=== PATIENT | female | born 1940 | race Caucasian/White ===

== ENCOUNTER 2017-11-13 13:40 | Inpatient (IN) | payer MEDICARE, OTHER ==
[2017-11-13] MEDS ORDERED: NORMAL SALINE 1,000 ML IV ONE (14:27)
[2017-11-13 14:35] LABS: Hematocrit 31.8 % (37.0-47.0); Hemoglobin 10.4 gm/dL (12.5-16.0); Mean Cell Volume 94.9 fl (78-100); Mean Corpuscular Hgb Conc 32.7 g/dl (32-36); Mean Platelet Volume 10.9 fl (8-12.5); Neutrophil # 15.3 K/mm3 (1.3-6.0); Neutrophil % 90.8 % (42-75.0); Platelet Count 189 K/mm3 (150-450); Red Blood Count 3.35 M/mm3 (4.2-5.4); Red Cell Distribution Width 14.3 % (11.5-14.0); White Blood Count 16.9 K/mm3 (4.0-10.5)
[2017-11-13 14:42] LABS: Urine Bilirubin Negative (NEGATIVE); Urine Blood 50 /ul (NEGATIVE); Urine Ketone Negative (NEGATIVE); Urine Nitrite Negative (NEGATIVE); Urine Protein >=300 mg/dL (NEGATIVE); Urine Specific Gravity 1.025 SP.GR. (1.005-1.010); Urine Urobilinogen Normal (NORMAL)
[2017-11-13 14:49] LABS: Albumin * 3.5 gm/dl (3.4-5.0); Anion Gap 11.5 mmol/L (6.8-13.8); BUN/Creatinine Ratio 26.6 (9.0-21.6); Bilirubin, Total 0.3 mg/dL (0.0-1.1); CRP 0.4 mg/dL (0.0-0.9); Ca. Corrected For Albumin 9.5 mg/dL (8.4-10.2); Calcium * 9.4 mg/dL (7.9-10.9); Carbon Dioxide 24.5 mmol/L (24-32.6); Total Protein 6.6 gm/dL (6.2-8.2)
[2017-11-13] MEDS ORDERED: ACETAMINOPHEN 500 MG TABLET PO ONE (15:06)
[2017-11-13 15:15] LABS: Urine Appearance Clear (CLEAR); Urine Bacteria TRACE; Urine Color Yellow; Urine WBC 0-5 /hpf (0-5)
[2017-11-13] MEDS ORDERED: AZITHROMYCIN 500 MG in DEXTROSE 5 % IN WATER 250 ML IV ONE ×2 (17:00)
--- NOTE | 2017-11-13 17:05 | ERNOTE ---
Medical Problem HPI - Narrative Date of Service: 11/13/17 - General Chief Complaint: General Assessment Time Seen by Provider: 11/13/17 14:13 Source: patient, family Exam Limitations: no limitations - Immun/Allergies/Home Medications Immunizations: IMMUNIZATION HX Immunizations Up to Date Yes History of Influenza Vaccine No Hx Pneumococcal Vaccination Yes Allergies/Adverse Reactions: Allergies No Known Allergies Allergy (Unverified 11/13/17 14:04) Home Medications: HOME MEDICATIONS Aspirin [Adult Aspirin] 81 mg PO DAILY 11/13/17 [Last Taken Unknown] [place] 1 gm MC DAILY 11/13/17 [Last Taken Unknown] Calcium Carbonate [Calcium] 500 mg PO DAILY 11/13/17 [Last Taken Unknown] Calcium Cit/Mgox/Vit D3/B6/Min [Calcium Citrate Plus Tablet] 1 each PO DAILY [Last Taken Unknown] Cholecalciferol (Vitamin D3) [Vitamin D3] 800 unit PO DAILY 11/13/17 [Last Taken Unknown] Copper Gluconate [Copper] 1 mg PO DAILY 11/13/17 [Last Taken Unknown] Lisinopril [Zestril] 40 mg PO DAILY 11/13/17 [Last Taken Unknown] Magnesium 80 mg PO DAILY 11/13/17 [Last Taken Unknown] Manganese Chloride [Manganese] 0.1 mg IV DAILY 11/13/17 [Last Taken Unknown] Metoprolol Succinate 25 mg PO DAILY 11/13/17 [Last Taken Unknown] Multivitamin [One Daily Essential] 1 each PO DAILY 11/13/17 [Last Taken Unknown] Pyridoxine HCl (Vitamin B6) [Vitamin B-6] 10 mg PO DAILY 11/13/17 [Last Taken Unknown] Triamterene/Hydrochlorothiazid [Triamterene-Hctz 50-25 mg Cap] 1 each PO DAILY 11/13/17 [Last Taken Unknown] Zinc 10 mg PO DAILY 11/13/17 [Last Taken Unknown] amLODIPine BESYLATE [Norvasc] 5 mg PO DAILY 11/13/17 [Last Taken Unknown] - History of Present History Narrative: Patient presents to the ED for fever and shaking chills. This started today. She has had some cough but not bad. No abdominal pains. She has not been around anyone else sick that she knows of. She is from [facility] but has been here visiting family for 3 weeks. Shaking chills and generalized weakness. No urinary symptoms. No vomiting.Nothing makes this better or worse. Timing: constant Severity: moderate Modifying Factors - (Improves): Present: other - nothing Modifying Factors - (Worsens): Present: other - nothing Review of Systems - Review of Systems Constitutional: Present: fever, chills EYE: Present: no symptoms reported ENT: Absent: sore throat Respiratory: Present: cough Cardiology: Absent: chest pain Gastrointestinal/Abdominal: Absent: abdominal pain Genitourinary: Absent: frequency All Other Systems: All systems neg except as marked Medical History (Last Reviewed 11/13/17 @ 17:02 by Misael Tang MD) Chronic kidney disease Hypertension anemia assoc w/ kidney disease Social History: Preferred Language Bahamian Do you have any anglican or Yes: mandaen cultural preference? Smoking Status Current every day smoker Have you smoked in the past 12 Yes months Do you dip or chew tobacco No Alcohol Use none Drug Use none Physical Exam - Physical Exam General Appearance: Present: alert, other - shaking chills Head Exam: Present: normal inspection, no evidence of injury Eye Exam: Normal inspection: bilateral, PERRL: bilateral Ears, Nose, Throat: Present: normal ENT inspection Neck: Present: normal inspection Respiratory: Present: no respiratory distress, normal breath sounds, no accessory muscle use, lungs clear Cardiovascular/Chest: Present: regular rate, rhythm, normal peripheral pulses Gastrointestinal/Abdominal: Present: normal bowel sounds, nontender, nondistended, soft Back Exam: Present: normal inspection. Absent: CVA tenderness (R), CVA tenderness (L) Extremity Exam: Present: normal inspection Neurological Exam: Present: alert, no motor/sensory deficits Skin Exam: Present: normal color, warm/dry ED Progress - Results and Orders Patient's Lab Results:: I have reviewed the patient's lab results. - Vital Signs Patient's Vital Signs:: I have reviewed the patient's vital signs. Vital Signs: Vital Signs 11/13/17 14:00 11/13/17 14:15 11/13/17 14:45 Temperature 38.3 C H Pulse Rate 83 94 94 Respiratory Rate 15 Blood Pressure 157/57 H 153/59 H 151/58 H O2 Sat by Pulse Oximetry 98 95 97 11/13/17 15:00 11/13/17 15:30 11/13/17 16:00 Temperature 38.4 C H 38.3 C H Pulse Rate 90 88 87 Respiratory Rate 16 18 Blood Pressure 154/48 H 149/42 105/50 O2 Sat by Pulse Oximetry 98 98 94 - EKG EKG: NSR EKG read: Interp. by me EKG Comments: NSR rate91. There are non-specific changes, no clear STEMI. PVC - X-Ray X-Ray #1 X-Ray: chest Interpretation: Interp. by me X-ray Comments: I reviewed official radiology report - Progress/Reassessment Chief Complaint: General Assessment Progress Note-Subjective: 11/13/17 17:04 IV ABX and IV fluids given. D/W Dr Mcgee, will admit obs for IV Abx. Patient agreeable. Departure Clinical Impression: Pneumonia, Fever - Departure Disposition: Still a patient Condition: Stable
--- NOTE | 2017-11-13 18:01 | HP ---
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 She said the night before admission she started having shaking chills she did not feel she had fever but she was sweating all over. She said that she really did not have significant coughing or signs and symptoms upper respiratory tract infection. She did notice that she has been losing weight recently. She does admit to loss of appetite. In the emergency room she was found to have an elevated white blood cell count and a rounded density on the apex of her right upper lobe of her lungs. This was suspicious for pneumonia or malignancy. The patient is visiting her daughter for 6 weeks and is from [place]. The patient was admitted for IV antibiotics. 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 Smoking Status Current every day smoker Have you smoked in the past 12 Yes months Do you dip or chew tobacco No Alcohol Use none Drug Use none Review Of Systems (GEN) - Review of Systems Generalized/Overall Review: Present: Chills, Fever Respiratory: Present: Cough. Absent: Shortness of Breath, Wheezing Cardiac: Absent: Chest Pain, Edema, Palpitations Abdominal: Absent: Nausea, Vomiting Genitourinary: Absent: Urgency, Frequency Musculoskeletal: Absent: Joint Pain, Back Pain Immunizations: IMMUNIZATION HX Immunizations Up to Date Yes History of Influenza Vaccine No Hx Pneumococcal Vaccination Yes Allergies/Adverse Reactions: Allergies Allergy/AdvReac Type Severity Reaction Status Date / Time No Known Allergies Allergy Unverified 11/13/17 14:04 Home Medications: HOME MEDICATIONS Aspirin [Adult Aspirin] 81 mg PO DAILY 11/13/17 [Last Taken 11/13/17 09:00] [place] 1 gm MC DAILY 11/13/17 [Last Taken Unknown] Calcium Carbonate [Calcium] 500 mg PO DAILY 11/13/17 [Last Taken Unknown] Calcium Cit/Mgox/Vit D3/B6/Min [Calcium Citrate Plus Tablet] 1 each PO DAILY [Last Taken Unknown] Cholecalciferol (Vitamin D3) [Vitamin D3] 800 unit PO DAILY 11/13/17 [Last Taken 11/13/17 09:30] Copper Gluconate [Copper] 1 mg PO DAILY 11/13/17 [Last Taken Unknown] Magnesium 80 mg PO DAILY 11/13/17 [Last Taken Unknown] Manganese Chloride [Manganese] 0.1 mg IV DAILY 11/13/17 [Last Taken Unknown] Metoprolol Succinate 25 mg PO DAILY 11/13/17 [Last Taken 11/12/17 21:00] Multivitamin [One Daily Essential] 1 each PO DAILY 11/13/17 [Last Taken 09:00] Pyridoxine HCl (Vitamin B6) [Vitamin B-6] 10 mg PO DAILY 11/13/17 [Last Taken Unknown] Triamterene/Hydrochlorothiazid [Maxzide 75 MG/50 MG] 1 tab PO DAILY PRN [Last Taken Unknown] Zinc 10 mg PO DAILY 11/13/17 [Last Taken Unknown] amLODIPine BESYLATE [Norvasc] 5 mg PO DAILY 11/13/17 [Last Taken 11/12/17 19:00] Exam - Exam Vital Signs: Vital Signs - Last Taken Temp 37.5 C 11/13/17 16:50 Pulse 83 11/13/17 16:50 Resp 22 H 11/13/17 16:50 BP 133/50 11/13/17 16:50 Pulse Ox 94 11/13/17 16:50 Constitutional: Present: Alert, Oriented x3, Cooperative, Elderly, Thin and frail ENT Exam: Present: hearing grossly normal Eye Exam: bilateral eye: normal inspection, PERRL, EOMI Neck: Present: supple Respiratory: Present: decreased breath sounds, No rales, No wheezing Cardiovascular/Chest: Present: regular rate, rhythm, no JVD, no murmur Abdomen: Present: Normal bowel sounds, soft, nontender, nondistended Extremity: Present: no pedal edema, no calf tenderness Diagnostic Studies: Abnormal Lab Results 11/13/17 11/13/17 11/13/17 Range/Units 14:33 Unknown Unknown WBC 16.9 H (4.0-10.5) K/mm3 RBC 3.35 L (4.2-5.4) M/mm3 Hgb 10.4 L (12.5-16.0) gm/dL Hct 31.8 L (37.0-47.0) % RDW 14.3 H (11.5-14.0) % Immature Gran % (Auto) 0.80 H (0.001-0.429) % Immature Gran # (Auto) 0.13 H (0.000-0.0310) K/mm3 Neutrophils % 90.8 H (42-75.0) % Lymphocytes % 3.3 L (20-51) % Neutrophils # 15.3 H (1.3-6.0) K/mm3 Lymphocytes # 0.56 L (1.5-3.5) k/mm3 BUN 55 H (3-23) mg/dL Creatinine 2.07 H (0.4-1.4) mg/dL Est GFR (Non-Af Amer) 25 L (60-130) mL/min BUN/Creatinine Ratio 26.6 H (9.0-21.6) Random Glucose 160 H (70-110) mg/dL Procalcitonin (0.05-0.50) ng/mL Urine Protein >=300 H (NEGATIVE) mg/dL Urine Blood 50 H (NEGATIVE) /ul Urine RBC 5-10 H (0-5) /hpf 11/13/17 Range/Units Unknown WBC (4.0-10.5) K/mm3 RBC (4.2-5.4) M/mm3 Hgb (12.5-16.0) gm/dL Hct (37.0-47.0) % RDW (11.5-14.0) % Immature Gran % (Auto) (0.001-0.429) % Immature Gran # (Auto) (0.000-0.0310) K/mm3 Neutrophils % (42-75.0) % Lymphocytes % (20-51) % Neutrophils # (1.3-6.0) K/mm3 Lymphocytes # (1.5-3.5) k/mm3 BUN (3-23) mg/dL Creatinine (0.4-1.4) mg/dL Est GFR (Non-Af Amer) (60-130) mL/min BUN/Creatinine Ratio (9.0-21.6) Random Glucose (70-110) mg/dL Procalcitonin Less than 0.05 L (0.05-0.50) ng/mL Urine Protein (NEGATIVE) mg/dL Urine Blood (NEGATIVE) /ul Urine RBC (0-5) /hpf Laboratory Results WBC 16.9 K/mm3 (4.0-10.5) H 11/13/17 Unknown RBC 3.35 M/mm3 (4.2-5.4) L 11/13/17 Unknown Hgb 10.4 gm/dL (12.5-16.0) L 11/13/17 Unknown Hct 31.8 % (37.0-47.0) L 11/13/17 Unknown MCV 94.9 fl (78-100) 11/13/17 Unknown MCH 31.0 pg (27-31) 11/13/17 Unknown MCHC 32.7 g/dl (32-36) 11/13/17 Unknown RDW 14.3 % (11.5-14.0) H 11/13/17 Unknown Plt Count 189 K/mm3 (150-450) 11/13/17 Unknown MPV 10.9 fl (8-12.5) 11/13/17 Unknown Immature Gran % (Auto) 0.80 % (0.001-0.429) H 11/13/17 Unknown Immature Gran # (Auto) 0.13 K/mm3 (0.000-0.0310) H 11/13/17 Unknown Neutrophils % 90.8 % (42-75.0) H 11/13/17 Unknown Lymphocytes % 3.3 % (20-51) L 11/13/17 Unknown Monocytes % 4.9 % (0.0-9) 11/13/17 Unknown Eosinophils % 0.0 % (0.0-3.0) 11/13/17 Unknown Basophils % 0.2 % (0.0-1.0) 11/13/17 Unknown Nucleated RBC % 0.0 k/mm3 (0-1) 11/13/17 Unknown Neutrophils # 15.3 K/mm3 (1.3-6.0) H 11/13/17 Unknown Lymphocytes # 0.56 k/mm3 (1.5-3.5) L 11/13/17 Unknown Monocytes # 0.8 k/mm3 (0.0-1.0) 11/13/17 Unknown Eosinophils # 0.0 k/mm3 (0.0-0.7) 11/13/17 Unknown Absolute Basophils 0.0 k/mm3 (0.0-0.1) 11/13/17 Unknown Sodium 135 mmol/L (132-142) 11/13/17 Unknown Plasma Sodium 136 mmol/L (130-142) 11/13/17 Unknown Potassium 4.0 mmol/L (3.4-4.6) 11/13/17 Unknown Chloride 103 mmol/L (97-106) 11/13/17 Unknown Carbon Dioxide 24.5 mmol/L (24-32.6) 11/13/17 Unknown Anion Gap 11.5 mmol/L (6.8-13.8) 11/13/17 Unknown BUN 55 mg/dL (3-23) H 11/13/17 Unknown Creatinine 2.07 mg/dL (0.4-1.4) H 11/13/17 Unknown Est GFR (Non-Af Amer) 25 mL/min (60-130) L 11/13/17 Unknown BUN/Creatinine Ratio 26.6 (9.0-21.6) H 11/13/17 Unknown Random Glucose 160 mg/dL (70-110) H 11/13/17 Unknown Lactic Acid, Venous 0.8 mmol/L (0.4-2.0) 11/13/17 Unknown Calcium 9.4 mg/dL (7.9-10.9) 11/13/17 Unknown Calcium Adj for Albumin 9.5 mg/dL (8.4-10.2) 11/13/17 Unknown Total Bilirubin 0.3 mg/dL (0.0-1.1) 11/13/17 Unknown AST 27 U/L (0-48) 11/13/17 Unknown ALT 23 U/L (19-67) 11/13/17 Unknown Alkaline Phosphatase 50 U/L (50-170) 11/13/17 Unknown Troponin I Less than 0.017 ng/mL (0.00-0.10) 11/13/17 15:20 C-Reactive Prot, Quant 0.4 mg/dL (0.0-0.9) 11/13/17 Unknown Total Protein 6.6 gm/dL (6.2-8.2) 11/13/17 Unknown Albumin 3.5 gm/dl (3.4-5.0) 11/13/17 Unknown Procalcitonin Less than 0.05 ng/mL (0.05-0.50) L 11/13/17 Unknown Urine Color Yellow 11/13/17 14:33 Urine Appearance Clear (CLEAR) 11/13/17 14:33 Urine pH 6.0 pH (5.0-7.0) 11/13/17 14:33 Ur Specific [place] 1.025 SP.GR. (1.005-1.010) 11/13/17 14:33 Urine Protein >=300 mg/dL (NEGATIVE) H 11/13/17 14:33 Urine Glucose (UA) Negative mg/dL (NEGATIVE) 11/13/17 14:33 Urine Ketones Negative mg/dL (NEGATIVE) 11/13/17 14:33 Urine Blood 50 /ul (NEGATIVE) H 11/13/17 14:33 Urine Nitrate Negative (NEGATIVE) 11/13/17 14:33 Urine Bilirubin Negative mg/dl (NEGATIVE) 11/13/17 14:33 Prot Sulfosalicylic Acd 1+ mg/dL (0) 11/13/17 14:33 Urine Urobilinogen Normal EU/dl (NORMAL) 11/13/17 14:33 Ur Leukocyte Esterase Negative /ul (NEGATIVE) 11/13/17 14:33 Urine RBC 5-10 /hpf (0-5) H 11/13/17 14:33 Urine WBC 0-5 /hpf (0-5) 11/13/17 14:33 Ur Epithelial Cells Trace /hpf (0-5) 11/13/17 14:33 Urine Bacteria Trace (NONE) 11/13/17 14:33 Urine Culture Comments No culture indicated 11/13/17 14:33 Chlamy pneumoniae PCR Not detected (NotDetected) 11/13/17 14:33 Adenovirus (PCR) Not detected (NotDetected) 11/13/17 14:33 B. pertussis DNA (PCR) Not detected (NotDetected) 11/13/17 14:33 Coronavirus OC43 (PCR) Not detected (NotDetected) 11/13/17 14:33 Coronavirus HKU1 (PCR) Not detected (NotDetected) 11/13/17 14:33 Coronavirus 229E (PCR) Not detected (NotDetected) 11/13/17 14:33 Coronavirus NL63 (PCR) Not detected (NotDetected) 11/13/17 14:33 Human Metapneumovir PCR Not detected (NotDetected) 11/13/17 14:33 Influenza A (H1) PCR Not detected (NotDetected) 11/13/17 14:33 Influenza A (H1N1) PCR Not detected (NotDetected) 11/13/17 14:33 Influenza A (H3) PCR Not detected (NotDetected) 11/13/17 14:33 Influenza Type A Ag Negative (NEGATIVE) 11/13/17 Unknown Influenza Type B Ag Negative (NEGATIVE) 11/13/17 Unknown Influenza B (RT-PCR) Not detected (NotDetected) 11/13/17 14:33 M. pneumoniae (PCR) Not detected (NotDetected) 11/13/17 14:33 Parainfluenza 1 (PCR) Not detected (NotDetected) 11/13/17 14:33 Parainfluenza 2 (PCR) Not detected (NotDetected) 11/13/17 14:33 Parainfluenza 3 (PCR) Not detected (NotDetected) 11/13/17 14:33 Parainfluenza 4 (PCR) Not detected (NotDetected) 11/13/17 14:33 RSV (PCR) Not detected (NotDetected) 11/13/17 14:33 Rhinovirus (PCR) Not detected (NotDetected) 11/13/17 14:33 Assessment/Plan - Assessment/Plan (1) Fever and chills Assessment: likely due to infection- pneumonia vs B symptoms of possible lymphoma Problem: Acute (2) Pneumonia Assessment: with leukocytosis- likely community acquired pneumonia r/o malignancy- Lymphoma. continue with IV Rocephin and Azithromycin. Problem: Acute Qualifiers: Pneumonia type: due to unspecified organism Laterality: right Lung location: upper lobe of lung Qualified Code(s): J18.1 - Lobar pneumonia, unspecified organism (3) Hypertension Assessment: continue with home medications Problem: Acute (4) Hyperlipidemia Assessment: continue with home medications Problem: Acute (5) CRF (chronic renal failure) Assessment: will try gentle hydration Problem: Acute Qualifiers: Chronic kidney disease stage: stage 4 (severe) Qualified Code(s): N18.4 - Chronic kidney disease, stage 4 (severe)
[2017-11-13] MEDS ORDERED: ACETAMINOPHEN 325 MG TABLET PO PRN (18:48)
[2017-11-13] MEDS: amLODIPine BESYLATE 5 MG TABLET PO SCH (22:10)
[2017-11-13] MEDS: METOPROLOL SUCCINATE 25 MG TABLET.SA PO SCH (22:31)
--- NOTE | 2017-11-14 08:17 | PN ---
Subjective - Date and Time Seen Date: 11/14/17 Time: 08:13 Subjective Narrative: Patient feels better. Tmax 38.4. BC x 2 Gram positive cocci in pairs Objective - Review of Systems Generalized/Overall Review: Reports: Weakness, Chills, Fever Respiratory: Reports: Cough. Denies: Shortness of Breath Abdominal: Denies: Nausea, Vomiting Genitourinary Symptoms: Denies: Urgency, Frequency Musculoskeletal Complaints: Reports: Joint Pain - Vitals Vitals: Last Vital Signs Temp 36.8 C 11/14/17 08:10 Pulse 70 11/14/17 08:10 Resp 16 11/14/17 08:10 BP 125/49 11/14/17 08:10 Pulse Ox 97 11/14/17 08:10 - Abnormal Lab Findings Abnormal Lab Findings: Abnormal Lab Results 11/13/17 11/13/17 11/13/17 Range/Units 14:33 Unknown Unknown WBC 16.9 H (4.0-10.5) K/mm3 RBC 3.35 L (4.2-5.4) M/mm3 Hgb 10.4 L (12.5-16.0) gm/dL Hct 31.8 L (37.0-47.0) % RDW 14.3 H (11.5-14.0) % Immature Gran % (Auto) 0.80 H (0.001-0.429) % Immature Gran # (Auto) 0.13 H (0.000-0.0310) K/mm3 Neutrophils % 90.8 H (42-75.0) % Lymphocytes % 3.3 L (20-51) % Neutrophils # 15.3 H (1.3-6.0) K/mm3 Lymphocytes # 0.56 L (1.5-3.5) k/mm3 BUN 55 H (3-23) mg/dL Creatinine 2.07 H (0.4-1.4) mg/dL Est GFR (Non-Af Amer) 25 L (60-130) mL/min BUN/Creatinine Ratio 26.6 H (9.0-21.6) Random Glucose 160 H (70-110) mg/dL Procalcitonin (0.05-0.50) ng/mL Urine Protein >=300 H (NEGATIVE) mg/dL Urine Blood 50 H (NEGATIVE) /ul Urine RBC 5-10 H (0-5) /hpf 11/13/17 Range/Units Unknown WBC (4.0-10.5) K/mm3 RBC (4.2-5.4) M/mm3 Hgb (12.5-16.0) gm/dL Hct (37.0-47.0) % RDW (11.5-14.0) % Immature Gran % (Auto) (0.001-0.429) % Immature Gran # (Auto) (0.000-0.0310) K/mm3 Neutrophils % (42-75.0) % Lymphocytes % (20-51) % Neutrophils # (1.3-6.0) K/mm3 Lymphocytes # (1.5-3.5) k/mm3 BUN (3-23) mg/dL Creatinine (0.4-1.4) mg/dL Est GFR (Non-Af Amer) (60-130) mL/min BUN/Creatinine Ratio (9.0-21.6) Random Glucose (70-110) mg/dL Procalcitonin Less than 0.05 L (0.05-0.50) ng/mL Urine Protein (NEGATIVE) mg/dL Urine Blood (NEGATIVE) /ul Urine RBC (0-5) /hpf - Exam Constitutional: Present: Alert, Oriented x3, Cooperative, Elderly, Thin and frail ENT Exam: Present: hearing grossly normal Neck: Present: supple Respiratory: Present: decreased breath sounds, No rales, No wheezing Cardiovascular/Chest: Present: regular rate, rhythm, no JVD, no murmur Abdomen: Present: Normal bowel sounds, soft, nontender, nondistended Extremity: Present: no pedal edema, no calf tenderness Assessment/Plan - Problems/Diagnosis (1) Bacteremia due to Gram-positive bacteria Problem: Acute Narrative: continue with IV Abx. await final results. will change to acute status. (2) Fever and chills Problem: Acute Narrative: due to Pneumonia with bacteremia likely Strep pneumoniae (3) Pneumonia Problem: Acute Qualifiers: Pneumonia type: due to unspecified organism Laterality: right Lung location: upper lobe of lung Qualified Code(s): J18.1 - Lobar pneumonia, unspecified organism Narrative: continue with IV Rocephin, Azithromycin. When WBC is trending down and no longer with fever x 24-48 hours benjamin change to oral bx and possible dischrge. will change to acute status. (4) Hypertension Problem: Acute (5) Hyperlipidemia Problem: Acute (6) CRF (chronic renal failure) Problem: Acute Qualifiers: Chronic kidney disease stage: stage 4 (severe) Qualified Code(s): N18.4 - Chronic kidney disease, stage 4 (severe)
[2017-11-14] MEDS ORDERED: LISINOPRIL 40 MG TABLET PO SCH (09:00)
[2017-11-14] MEDS ORDERED: CHOLECALCIFEROL 400 UNIT TABLET PO SCH (09:00)
[2017-11-14] MEDS ORDERED: METOPROLOL SUCCINATE 25 MG TABLET.SA PO SCH (09:00)
[2017-11-14] MEDS ORDERED: amLODIPine BESYLATE 5 MG TABLET PO SCH (09:00)
[2017-11-14] MEDS: MULTIVITAMINS 1 CAP CAPSULE PO SCH (09:18)
[2017-11-14] MEDS: AZITHROMYCIN 250 MG TABLET PO SCH (09:18)
[2017-11-14] MEDS: CALCIUM CARBONATE 500 MG TAB.CHEW PO SCH (09:18)
[2017-11-14] MEDS: ASPIRIN 81 MG TABLET.DR PO SCH (09:18)
[2017-11-14] MEDS: ENOXAPARIN SODIUM 40 MG/0.4 ML SYRG SC SCH (09:19)
[2017-11-14] MEDS: CALCIUM CITRATE PLUS PO SCH (09:20)
[2017-11-14 10:40] LABS: Hematocrit 27.9 % (37.0-47.0); Hemoglobin 9.2 gm/dL (12.5-16.0); Mean Cell Volume 93.3 fl (78-100); Mean Corpuscular Hemoglobin 30.8 pg (27-31); Mean Platelet Volume 10.7 fl (8-12.5); Neutrophil # 15.4 K/mm3 (1.3-6.0); Neutrophil % 83.1 % (42-75.0); Platelet Count 152 K/mm3 (150-450); Red Blood Count 2.99 M/mm3 (4.2-5.4); Red Cell Distribution Width 14.4 % (11.5-14.0); White Blood Count 18.6 K/mm3 (4.0-10.5)
[2017-11-14 10:53] LABS: Anion Gap 11.6 mmol/L (6.8-13.8); Blood Urea Nitrogen 50 mg/dL (3-23); Calcium * 8.6 mg/dL (7.9-10.9); Carbon Dioxide 25.6 mmol/L (24-32.6); Chloride 102 mmol/L (97-106); Estimated Creat Clear 17.6; Glucose * 92 mg/dL (70-110); Potassium 4.2 mmol/L (3.4-4.6); Sodium 135 mmol/L (132-142); Troponin I Less than 0.017 ng/mL (0.00-0.10)
[2017-11-14] MEDS: CHOLECALCIFEROL 1,000 UNIT CAPSULE PO SCH (11:25)
--- NOTE | 2017-11-14 11:34 | PN ---
Progess Note - Interim Date: 11/14/17 Time: 11:30 Narrative: 11/14/17 11:30 Had CP, left lateral chest, pressure like. EKG showed NSR with anteroseptal infarct, of indeterminate age not differnet form EKG on admission. Troponin was normal. She does give a h/o blood clot before. It is however reproducible with palpation of her left chest- likely costochondritis. Cannot take NSAID due to her her CRF. Will get a second set EKG and troponin. If still normal or no change . We might try Prednisone but will put P.E. on the back of our mind.
[2017-11-14] MEDS: predniSONE 20 MG TABLET PO SCH (15:57)
[2017-11-14] MEDS: amLODIPine BESYLATE 5 MG TABLET PO SCH (21:28)
[2017-11-14] MEDS: METOPROLOL SUCCINATE 25 MG TABLET.SA PO SCH (21:29)
[2017-11-15] MEDS: ENOXAPARIN SODIUM 40 MG/0.4 ML SYRG SC SCH (09:59)
[2017-11-15] MEDS: predniSONE 20 MG TABLET PO SCH (09:59)
[2017-11-15] MEDS: CALCIUM CARBONATE 500 MG TAB.CHEW PO SCH (10:00)
[2017-11-15] MEDS: CHOLECALCIFEROL 1,000 UNIT CAPSULE PO SCH (10:00)
[2017-11-15] MEDS: MULTIVITAMINS 1 CAP CAPSULE PO SCH (10:00)
[2017-11-15] MEDS: AZITHROMYCIN 250 MG TABLET PO SCH (10:00)
[2017-11-15] MEDS: ASPIRIN 81 MG TABLET.DR PO SCH (10:00)
[2017-11-15] MEDS: CALCIUM CITRATE PLUS PO SCH (10:01)
--- NOTE | 2017-11-15 13:43 | PN ---
Subjective - Date and Time Seen Date: 11/15/17 Time: 13:38 Subjective Narrative: Walked the hallway. Positive cocci in blood. Afebrile. No longer with CP. Objective - Review of Systems Generalized/Overall Review: Denies: Weakness, Chills, Fever Respiratory: Denies: Cough, Shortness of Breath Cardiac: Denies: Chest Pain, Edema Abdominal: Denies: Vomiting Genitourinary Symptoms: Denies: Urgency, Frequency - Vitals Vitals: Last Vital Signs Temp 37.1 C 11/15/17 07:06 Pulse 84 11/15/17 10:00 Resp 18 11/15/17 07:06 BP 116/58 11/15/17 07:06 Pulse Ox 93 11/15/17 07:06 - Exam Constitutional: Present: Alert, Oriented x3, Cooperative ENT Exam: Present: hearing grossly normal Neck: Present: supple Respiratory: Present: decreased breath sounds, No rales, No wheezing Cardiovascular/Chest: Present: regular rate, rhythm, no JVD, no murmur Abdomen: Present: Normal bowel sounds, soft, nontender, nondistended Extremity: Present: no pedal edema, no calf tenderness Assessment/Plan - Problems/Diagnosis (1) Bacteremia due to Gram-positive bacteria Problem: Acute Narrative: awaiting final reading. continue with IV antibiotics. will repeat CBC. (2) Fever and chills Problem: Resolved (3) Pneumonia Problem: Acute Qualifiers: Pneumonia type: due to unspecified organism Laterality: right Lung location: upper lobe of lung Qualified Code(s): J18.1 - Lobar pneumonia, unspecified organism (4) Hypertension Problem: Chronic (5) Hyperlipidemia Problem: Chronic (6) CRF (chronic renal failure) Problem: Chronic Qualifiers: Chronic kidney disease stage: stage 4 (severe) Qualified Code(s): N18.4 - Chronic kidney disease, stage 4 (severe) (7) Chest pain Problem: Resolved Qualifiers: Chest pain type: intercostal pain Qualified Code(s): R07.82 - Intercostal pain Narrative: likely costochondritis. given prednisone as she cannot have NSAIDS. she does not want stress test on outpatient basis.
[2017-11-15 14:10] LABS: Hematocrit 27.7 % (37.0-47.0); Hemoglobin 9.4 gm/dL (12.5-16.0); Mean Cell Volume 93.3 fl (78-100); Mean Corpuscular Hemoglobin 31.6 pg (27-31); Mean Corpuscular Hgb Conc 33.9 g/dl (32-36); Mean Platelet Volume 10.9 fl (8-12.5); Neutrophil # 13.1 K/mm3 (1.3-6.0); Neutrophil % 89.8 % (42-75.0); Platelet Count 175 K/mm3 (150-450); Red Blood Count 2.97 M/mm3 (4.2-5.4); Red Cell Distribution Width 14.6 % (11.5-14.0); White Blood Count 14.6 K/mm3 (4.0-10.5)
[2017-11-15 14:12] LABS: Anion Gap 14.6 mmol/L (6.8-13.8); BUN/Creatinine Ratio 23.4 (9.0-21.6); Calcium * 8.4 mg/dL (7.9-10.9); Carbon Dioxide 24.1 mmol/L (24-32.6); Estimated Creat Clear 15.6; Potassium 4.7 mmol/L (3.4-4.6)
[2017-11-15] MEDS: METOPROLOL SUCCINATE 25 MG TABLET.SA PO SCH (20:54)
[2017-11-15] MEDS: amLODIPine BESYLATE 5 MG TABLET PO SCH (20:55)
[2017-11-16] MEDS: ASPIRIN 81 MG TABLET.DR PO SCH (08:35)
[2017-11-16] MEDS: CALCIUM CARBONATE 500 MG TAB.CHEW PO SCH (08:36)
[2017-11-16] MEDS: ENOXAPARIN SODIUM 40 MG/0.4 ML SYRG SC SCH (08:36)
[2017-11-16] MEDS: CHOLECALCIFEROL 1,000 UNIT CAPSULE PO SCH (08:36)
[2017-11-16] MEDS: AZITHROMYCIN 250 MG TABLET PO SCH (08:36)
[2017-11-16] MEDS: predniSONE 20 MG TABLET PO SCH (08:36)
[2017-11-16] MEDS: MULTIVITAMINS 1 CAP CAPSULE PO SCH (08:36)
[2017-11-16] MEDS: CALCIUM CITRATE PLUS PO SCH (08:38)
--- NOTE | 2017-11-16 13:48 | PN ---
Subjective - Date and Time Seen Date: 11/16/17 Time: 13:43 Subjective Narrative: Patient NAD. No CP. Cr bumped up to 2.5. WBC is slightly down. C & S is strep. pneumoniae. Objective - Review of Systems Generalized/Overall Review: Denies: Chills, Fever Respiratory: Denies: Cough, Shortness of Breath Cardiac: Denies: Chest Pain, Edema, Palpitations Abdominal: Denies: Nausea, Vomiting Genitourinary Symptoms: Denies: Urgency, Frequency - Vitals Vitals: Last Vital Signs Temp 36.8 C 11/16/17 10:55 Pulse 74 11/16/17 10:55 Resp 20 11/16/17 10:55 BP 148/74 11/16/17 10:55 Pulse Ox 98 11/16/17 10:55 - Abnormal Lab Findings Abnormal Lab Findings: Abnormal Lab Results 11/15/17 11/15/17 Range/Units 13:49 13:49 WBC 14.6 H D (4.0-10.5) K/mm3 RBC 2.97 L (4.2-5.4) M/mm3 Hgb 9.4 L (12.5-16.0) gm/dL Hct 27.7 L (37.0-47.0) % MCH 31.6 H (27-31) pg RDW 14.6 H (11.5-14.0) % Immature Gran % (Auto) 0.80 H (0.001-0.429) % Immature Gran # (Auto) 0.12 H (0.000-0.0310) K/mm3 Neutrophils % 89.8 H (42-75.0) % Lymphocytes % 5.6 L (20-51) % Neutrophils # 13.1 H (1.3-6.0) K/mm3 Lymphocytes # 0.81 L (1.5-3.5) k/mm3 Potassium 4.7 H (3.4-4.6) mmol/L Anion Gap 14.6 H (6.8-13.8) mmol/L BUN 55 H (3-23) mg/dL Creatinine 2.35 H (0.4-1.4) mg/dL Est GFR (Non-Af Amer) 21 L (60-130) mL/min BUN/Creatinine Ratio 23.4 H (9.0-21.6) Random Glucose 139 H D (70-110) mg/dL - Exam Constitutional: Present: Alert, Oriented x3, Cooperative ENT Exam: Present: hearing grossly normal Neck: Present: supple Respiratory: Present: decreased breath sounds, No rales, No wheezing Cardiovascular/Chest: Present: regular rate, rhythm, no JVD, no murmur Abdomen: Present: Normal bowel sounds, soft, nontender, nondistended Extremity: Present: no pedal edema, no calf tenderness Assessment/Plan - Problems/Diagnosis (1) Bacteremia due to Gram-positive bacteria Problem: Acute Narrative: Strep Pneumonia (2) Fever and chills Problem: Resolved (3) Pneumonia Problem: Acute Qualifiers: Pneumonia type: due to group B Streptococcus Laterality: right Lung location: upper lobe of lung Qualified Code(s): J15.3 - Pneumonia due to streptococcus, group B Narrative: Strep Pneumoniae Pneumonia. will change antibiotics to levaquin. possible discharge in the morning. (4) Hypertension Problem: Chronic (5) Hyperlipidemia Problem: Chronic (6) CRF (chronic renal failure) Problem: Chronic Qualifiers: Chronic kidney disease stage: stage 4 (severe) Qualified Code(s): N18.4 - Chronic kidney disease, stage 4 (severe) Narrative: Cr is up to 2.5 . will start IVF (7) Chest pain Problem: Resolved Qualifiers: Chest pain type: intercostal pain Qualified Code(s): R07.82 - Intercostal pain Narrative: likely costochondritis.
[2017-11-16] MEDS: NORMAL SALINE 1,000 ML IV PRN ×2 (13:54→20:51)
[2017-11-16] MEDS: amLODIPine BESYLATE 5 MG TABLET PO SCH (20:46)
[2017-11-16] MEDS: METOPROLOL SUCCINATE 25 MG TABLET.SA PO SCH (20:46)
[2017-11-17] MEDS: NORMAL SALINE 1,000 ML IV PRN ×2 (03:34→10:43)
[2017-11-17 05:55] LABS: Hematocrit 28.1 % (37.0-47.0); Hemoglobin 9.2 gm/dL (12.5-16.0); Mean Cell Volume 94.9 fl (78-100); Mean Corpuscular Hemoglobin 31.1 pg (27-31); Mean Corpuscular Hgb Conc 32.7 g/dl (32-36); Mean Platelet Volume 11.2 fl (8-12.5); Neutrophil % 72.2 % (42-75.0); Platelet Count 183 K/mm3 (150-450); Red Blood Count 2.96 M/mm3 (4.2-5.4); Red Cell Distribution Width 14.6 % (11.5-14.0); White Blood Count 11.1 K/mm3 (4.0-10.5)
[2017-11-17 06:07] LABS: Anion Gap 12.7 mmol/L (6.8-13.8); BUN/Creatinine Ratio 29.7 (9.0-21.6); Calcium * 8.2 mg/dL (7.9-10.9); Carbon Dioxide 23.6 mmol/L (24-32.6); Estimated Creat Clear 19.8; Potassium 4.3 mmol/L (3.4-4.6)
[2017-11-17] MEDS: ENOXAPARIN SODIUM 40 MG/0.4 ML SYRG SC SCH ×2 (08:30→08:40)
[2017-11-17] MEDS: ASPIRIN 81 MG TABLET.DR PO SCH (08:30)
[2017-11-17] MEDS: MULTIVITAMINS 1 CAP CAPSULE PO SCH (08:31)
[2017-11-17] MEDS: AZITHROMYCIN 250 MG TABLET PO SCH (08:32)
[2017-11-17] MEDS: CHOLECALCIFEROL 1,000 UNIT CAPSULE PO SCH (08:32)
[2017-11-17] MEDS: CALCIUM CARBONATE 500 MG TAB.CHEW PO SCH (08:32)
[2017-11-17] MEDS: predniSONE 20 MG TABLET PO SCH (08:32)
--- NOTE | 2017-11-17 08:47 | DS ---
(1) Bacteremia due to Gram-positive bacteria Diagnosis(s): Streptococcus Pneumoniae bacteremia Problem: Acute (2) Fever and chills Problem: Resolved (3) Pneumonia Diagnosis(s): CAP Problem: Acute Qualifiers: Pneumonia type: due to group B Streptococcus Laterality: right Lung location: upper lobe of lung Qualified Code(s): J15.3 - Pneumonia due to streptococcus, group B (4) Hypertension Problem: Chronic (5) Hyperlipidemia Problem: Chronic (6) CRF (chronic renal failure) Diagnosis(s): Stage 4 . 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 She said the night before admission she started having shaking chills she did not feel she had fever but she was sweating all over. She said that she really did not have significant coughing or signs and symptoms upper respiratory tract infection. She did notice that she has been losing weight recently. She does admit to loss of appetite. In the emergency room she was found to have an elevated white blood cell count and a rounded density on the apex of her right upper lobe of her lungs. This was suspicious for pneumonia or malignancy. The patient is visiting her daughter for 6 weeks and is from [place]. The patient was admitted for IV antibiotics. Her WBC started to go down and is now 11.1. Her blood culture grew Strep Pneumoniae. Her Cr bumped to 2.5 but improved to 1.6 with IVF. She has CP and her troponin were normal x 2. It was reproducible with palpation and was treated Prednisone. She is stable to be discharge today. Procedures Performed: none Results and Findings: Lab Pending Results 11/13/17 14:33: Urine Color Yellow, Urine Appearance Clear, Urine pH 6.0, Ur Specific Andrews 1.025, Urine Protein >=300 H, Urine Glucose (UA) Negative, Urine Ketones Negative, Urine Blood 50 H, Urine Nitrate Negative, Urine Bilirubin Negative, Prot Sulfosalicylic Acd 1+, Urine Urobilinogen Normal, Ur Leukocyte Esterase Negative, Urine RBC 5-10 H, Urine WBC 0-5, Ur Epithelial Cells Trace, Urine Bacteria Trace, Urine Culture Comments No culture indicated 11/13/17 14:33: Chlamy pneumoniae PCR Not detected, Adenovirus (PCR) Not detected, B. pertussis DNA (PCR) Not detected, Coronavirus OC43 (PCR) Not detected, Coronavirus HKU1 (PCR) Not detected, Coronavirus 229E (PCR) Not detected, Coronavirus NL63 (PCR) Not detected, Human Metapneumovir PCR Not detected, Influenza A (H1) PCR Not detected, Influenza A (H1N1) PCR Not detected , Influenza A (H3) PCR Not detected, Influenza B (RT-PCR) Not detected, M. pneumoniae (PCR) Not detected, Parainfluenza 1 (PCR) Not detected, Parainfluenza 2 (PCR) Not detected, Parainfluenza 3 (PCR) Not detected, Parainfluenza 4 (PCR) Not detected, RSV (PCR) Not detected, Rhinovirus (PCR) Not detected 11/13/17 15:20: Troponin I Less than 0.017 11/13/17 : WBC 16.9 H, RBC 3.35 L, Hgb 10.4 L, Hct 31.8 L, MCV 94.9, MCH 31.0, MCHC 32.7, RDW 14.3 H, Plt Count 189, MPV 10.9, Immature Gran % (Auto) 0.80 H, Immature Gran # (Auto) 0.13 H, Neutrophils % 90.8 H, Lymphocytes % 3.3 L, Monocytes % 4.9, Eosinophils % 0.0, Basophils % 0.2, Nucleated RBC % 0.0, Neutrophils # 15.3 H, Lymphocytes # 0.56 L, Monocytes # 0.8, Eosinophils # 0.0, Absolute Basophils 0.0 11/13/17 : Sodium 135, Plasma Sodium 136, Potassium 4.0, Chloride 103, Carbon Dioxide 24.5, Anion Gap 11.5, BUN 55 H, Creatinine 2.07 H, Est GFR (Non-Af Amer ) 25 L, BUN/Creatinine Ratio 26.6 H, Random Glucose 160 H, Calcium 9.4, Calcium Adj for Albumin 9.5, Total Bilirubin 0.3, AST 27, ALT 23, Alkaline Phosphatase 50, C-Reactive Prot, Quant 0.4, Total Protein 6.6, Albumin 3.5 11/13/17 : Lactic Acid, Venous 0.8 11/13/17 : Procalcitonin Less than 0.05 L 11/13/17 : Influenza Type A Ag Negative, Influenza Type B Ag Negative 11/14/17 10:30: WBC 18.6 H, RBC 2.99 L, Hgb 9.2 L, Hct 27.9 L, MCV 93.3, MCH 30.8, MCHC 33.0, RDW 14.4 H, Plt Count 152, MPV 10.7, Immature Gran % (Auto) 0.90 H, Immature Gran # (Auto) 0.17 H, Neutrophils % 83.1 H, Lymphocytes % 10.5 L, Monocytes % 5.1, Eosinophils % 0.2, Basophils % 0.2, Nucleated RBC % 0.0, Neutrophils # 15.4 H, Lymphocytes # 1.94, Monocytes # 1.0, Eosinophils # 0.0, Absolute Basophils 0.0 11/14/17 10:30: Sodium 135, Plasma Sodium 135, Potassium 4.2, Chloride 102, Carbon Dioxide 25.6, Anion Gap 11.6, BUN 50 H, Creatinine 2.08 H, Est GFR (Non- Af Amer) 24 L, BUN/Creatinine Ratio 24.0 H, Random Glucose 92 D, Calcium 8.6, Troponin I Less than 0.017 11/14/17 14:25: Troponin I Less than 0.017 11/15/17 13:49: WBC 14.6 H D, RBC 2.97 L, Hgb 9.4 L, Hct 27.7 L, MCV 93.3, MCH 31.6 H, MCHC 33.9, RDW 14.6 H, Plt Count 175, MPV 10.9, Immature Gran % (Auto) 0.80 H, Immature Gran # (Auto) 0.12 H, Neutrophils % 89.8 H, Lymphocytes % 5.6 L , Monocytes % 3.6, Eosinophils % 0.1, Basophils % 0.1, Nucleated RBC % 0.0, Neutrophils # 13.1 H, Lymphocytes # 0.81 L, Monocytes # 0.5, Eosinophils # 0.0, Absolute Basophils 0.0 11/15/17 13:49: Sodium 135, Plasma Sodium 136, Potassium 4.7 H, Chloride 101, Carbon Dioxide 24.1, Anion Gap 14.6 H, BUN 55 H, Creatinine 2.35 H, Est GFR (Non -Af Amer) 21 L, BUN/Creatinine Ratio 23.4 H, Random Glucose 139 H D, Calcium 8.4 11/17/17 05:25: WBC 11.1 H D, RBC 2.96 L, Hgb 9.2 L, Hct 28.1 L, MCV 94.9, MCH 31.1 H, MCHC 32.7, RDW 14.6 H, Plt Count 183, MPV 11.2, Immature Gran % (Auto) 1.20 H, Immature Gran # (Auto) 0.13 H, Neutrophils % 72.2, Lymphocytes % 18.8 L , Monocytes % 7.1, Eosinophils % 0.4, Basophils % 0.3, Nucleated RBC % 0.0, Neutrophils # 8.0 H, Lymphocytes # 2.08, Monocytes # 0.8, Eosinophils # 0.0, Absolute Basophils 0.0 11/17/17 05:25: Sodium 140, Plasma Sodium 140, Potassium 4.3, Chloride 108 H, Carbon Dioxide 23.6 L, Anion Gap 12.7, BUN 55 H, Creatinine 1.85 H D, Est GFR ( Non-Af Amer) 28 L D, BUN/Creatinine Ratio 29.7 H, Random Glucose 93 D, Calcium 8.2 Discharge Location: Home Disposition: Home self-care Condition: Stable Discharge Activity: Activity as tolerated Discharge Diet: Low salt Additional Patient Instructions (free text): Follow up with Dr. Mcgee 11/26 at 9:45am. please check in at 9:30am. Prescriptions (Any new or edited meds): Acetaminophen [Tylenol] 650 mg PO Q6H PRN #30 tab PRN Reason: Fever Levofloxacin [Levaquin] 250 mg PO DAILY 5 Days #5 tab Complete Home Medications List: Complete Home Medication List: Aspirin [Adult Aspirin] 81 mg PO DAILY 11/13/17 Ideal 1 gm MC DAILY 11/13/17 Calcium Carbonate [Calcium] 500 mg PO DAILY 11/13/17 Calcium Cit/Mgox/Vit D3/B6/Min [Calcium Citrate Plus Tablet] 1 each PO DAILY Cholecalciferol (Vitamin D3) [Vitamin D3] 800 unit PO DAILY 11/13/17 Copper Gluconate [Copper] 1 mg PO DAILY 11/13/17 Magnesium 80 mg PO DAILY 11/13/17 Manganese Chloride [Manganese] 0.1 mg IV DAILY 11/13/17 Metoprolol Succinate 25 mg PO DAILY 11/13/17 Multivitamin [One Daily Essential] 1 each PO DAILY 11/13/17 Pyridoxine HCl (Vitamin B6) [Vitamin B-6] 10 mg PO DAILY 11/13/17 Triamterene/Hydrochlorothiazid [Maxzide 75 MG/50 MG] 1 tab PO DAILY PRN Zinc 10 mg PO DAILY 11/13/17 amLODIPine BESYLATE [Norvasc] 5 mg PO DAILY 11/13/17 Acetaminophen [Tylenol] 650 mg PO Q6H PRN #30 tab 11/17/17 Levofloxacin [Levaquin] 250 mg PO DAILY 5 Days #5 tab 11/17/17
[2017-11-17] MEDS: CALCIUM CITRATE PLUS PO SCH (09:00)
[2017-11-17 15:07] VITALS: BP 164/64
== END 2017-11-17 15:15 | disposition home or self-care (01) | DRG 194 ==
LOC: ER 13:40 → MS 13:40 → OBSVTOIN 16:19 → MS 16:50
PROVIDERS: ADMIT Internal Medicine; ATTEND Internal Medicine
CPT/HCPCS: 36415; 71010; 71045; 80048; 80053; 81001; 83605; 84145; 84484; 85025; 86140; 87040; 87184; 87400; 87449; 87633; 93005; 96361; 96365; 99285